=== PATIENT | male | born 1955 | race Caucasian/White ===

== ENCOUNTER 2021-03-04 08:36 | Day surgery (SDC) | payer MEDICARE, SELFPAY ==
--- NOTE | 2021-02-27 13:50 | HO.ANESPROP2 ---
Documented by User: Wendy Llamas 02/27/21 13:51 HPI - Anesthesia Eval Consult details Narrative: 65yo M for Colonoscopy PMFSH Active Problems Active Problems: All Active Problems (Updated 11/13/20 @ 08:36 by Rj Scales MD) Hypertension (Acute) Past Medical History Medical History Hypertension Family History Family History Father No problems noted. Mother No problems noted. Brother In good health Sister In good health Son In good health Daughter In good health Surgical History Surgical History H/O rectal polypectomy History of hemorrhoidectomy Social History Social History Advance Directives: No Advance Directives Information Provided: Yes Meds Allergies Allergy/AdvReac Type Severity Reaction Status Date / Time No Known Allergies Allergy Verified 11/05/20 07:00 [No Known Allergies*] Home Medications Medication Instructions Recorded Confirmed Last Taken Type bupropion HCl 200 mg tablet,12 hr PO 11/13/20 11/13/20 Unknown History sustained-release multivitamin 1 tab PO DAILY 11/13/20 11/13/20 Unknown History tamsulosin 0.4 mg capsule 0.4 mg PO DAILY 11/13/20 11/13/20 Unknown History Exam Exam Date and Time: February 27, 2021 1350 Assessment and Plan Assessment Anesthesia Assessment: Chart Reviewed Documented by User: Pushpa Nieto 03/04/21 08:52 PMFSH Past Medical History Medical History Hypertension Family History Family History Father No problems noted. Mother No problems noted. Brother In good health Sister In good health Son In good health Daughter In good health Surgical History Surgical History H/O rectal polypectomy History of hemorrhoidectomy Social History Social History Advance Directives: No Advance Directives Information Provided: Yes Meds Allergies Allergy/AdvReac Type Severity Reaction Status Date / Time No Known Allergies Allergy Verified 11/05/20 07:00 [No Known Allergies*] Home Medications Medication Instructions Recorded Confirmed Last Taken Type bupropion HCl 200 mg tablet,12 hr PO 11/13/20 11/13/20 Unknown History sustained-release multivitamin 1 tab PO DAILY 11/13/20 11/13/20 Unknown History tamsulosin 0.4 mg capsule 0.4 mg PO DAILY 11/13/20 11/13/20 Unknown History Exam Airway Mallampati Class: II TM Dist: >3cm Neck ROM: Full Assessment and Plan Assessment Anesthesia Assessment: Anesthesia Plan Discussed and Chart Reviewed Final Anesthetic Review NPO: Yes ASA Class: II Final Preanesthetic Review: No Changes in Pt Med Stat, Meds/Allgs Chart Reviewed, Consent Obtained/Reviewed and Anes Risks/Benef Reviewed Patient Risk: Low Procedure Risk: Low Assessment/Block/Sedation in SS: Assess/Block/Sedation-SS Anesthetic Plan Anesthetic Plan: MAC: Disposition: Standard PACU
[2021-03-04 08:48] VITALS: PULSE 82; RESP 18; TEMP 36.6; O2SAT 98; BMI 30.8
[2021-03-04] MEDS: Lactated Ringers 1,000 ML 100 ML IVCONT (09:10)
--- NOTE | 2021-03-04 09:13 | MHC.SHP ---
Pre-Procedural Eval Section A The patient is an INPATIENT: No Changes since office visit: No Cold of Flu in the past 2 weeks, No New Medical Problems, No Changes in Medication and No Patient answered all questions The History & Physical has been completed within 30 days and I have reviewed it.: Yes Section B Chief Complaint: screening Allergies: Allergies Allergy/AdvReac Type Severity Reaction Status Date / Time No Known Allergies Allergy Verified 11/05/20 07:00 [No Known Allergies*] Plan I have reviewed the history and physical and performed a pertinent physical examination on my patient. No changes have occurred unless specified.
[2021-03-04 09:41] VITALS: BP 119/70; PULSE 62; RESP 16; TEMP 36.2; O2SAT 96
--- NOTE | 2021-03-04 09:42 | PM.OP ---
Brief Operative Note Date of Service: 03/04/21 Pre-op diagnosis: screening Post-op diagnosis: same Procedure: colonoscopy Surgeon: Adeel Grant Estimated blood loss (mL): 0 Pathology: none sent Condition: stable Disposition: PACU
[2021-03-04 09:56] VITALS: BP 149/79; PULSE 61; RESP 17; TEMP 36.2; O2SAT 96
--- NOTE | 2021-03-04 10:22 | OP_ITS ---
SURGEON: Adeel Grant MD INDICATIONS: Colon cancer screening and prior history of adenomatous colon polyps. PREOPERATIVE DIAGNOSIS: POSTOPERATIVE DIAGNOSIS: PROCEDURE PERFORMED: Colonoscopy to the terminal ileum. ESTIMATED BLOOD LOSS: COMPLICATIONS: ANESTHESIA: Medications, monitored anesthesia care. ASSISTANTS: SPECIMENS: DESCRIPTION OF PROCEDURE: History and physical performed. The risks and benefits of the procedure were explained to the patient. Informed consent was obtained. The patient was placed in the left lateral decubitus position. A digital rectal exam was performed and was found to be normal. The Olympus pediatric video colonoscope was introduced into the rectum and advanced to the cecum without difficulty. The cecum was identified by transillumination, palpation, and identification of ileocecal valve. Examination was performed. The scope was removed. He tolerated the procedure well and was transferred to the recovery area in stable condition. FINDINGS: The terminal ileum was normal. Visualized colonic mucosa was normal. The quality of the prep was good. No polyps identified. Retroflexed examination showed small internal hemorrhoids. There was scattered diverticulosis. IMPRESSION: Negative screening colonoscopy. RECOMMENDATIONS: 1. Follow up as needed. 2. Repeat colonoscopy should be considered in 5 to 10 years because of prior history of polyps. MD INNA Vargas/BAN / [id number]
== END 2021-03-04 10:10 | disposition home or self-care (01) ==
PROVIDERS: PCP Internal Medicine; Visit Provider Internal Medicine Gastroenterology
PROC: 0DJD8ZZ Inspection of Lower Intestinal Tract, Via Natural or Artificial Opening Endoscopic (ICD-10-PCS; CPT 45378; principal; 2021-03-04 09:30)
DX: Z12.11 Encounter for screening for malignant neoplasm of colon (principal); Z86.010 Personal history of colon polyps; K57.30 Diverticulosis of large intestine without perforation or abscess without bleeding; K64.8 Other hemorrhoids; K21.9 Gastro-esophageal reflux disease without esophagitis; I10 Essential (primary) hypertension; Z79.84 Long term (current) use of oral hypoglycemic drugs
CPT/HCPCS: G0105

== ENCOUNTER 2021-04-30 09:44 | Outpatient (REF) | payer MEDICARE, SELFPAY ==
[2021-04-30 11:23] LABS: Alanine Aminotransferase 18 U/L (0-40); Albumin Level 4.4 g/dL (3.5-5.0); Alkaline Phosphatase 60 U/L (39-117); Anion Gap 12 (12-20); Aspartate Amino Transferase 16 U/L (5-37); Bilirubin Total 0.7 mg/dL (0.0-1.0); Blood Urea Nitrogen 19 mg/dL (9-16); Calcium 9.7 mg/dL (8.4-10.2); Carbon Dioxide 26 mmol/L (22-29); Chloride 105 mmol/L (96-108); Cholesterol 216 mg/dL; Estimated Glomerular Filt Rate > 60; Glucose Fasting 97 mg/dL (60-99); HDL Cholesterol 52 mg/dL; LDL Cholesterol Calculated 141 mg/dl; Potassium 4.9 mmol/L (3.3-5.1); Sodium 138 mmol/L (135-145); Total Protein 7.3 g/dL (6.5-8.0); Triglycerides 116 mg/dL
[2021-04-30 11:44] LABS: Prostate Specific Antigen 1.69 ng/mL (<0.05-4.0)
== END 2021-04-30 09:45 | disposition home or self-care (01) ==
LOC: HO.LAB 09:44
PROVIDERS: PCP Internal Medicine; Visit Provider Nurse Practitioner Family
DX: Z13.220 Encounter for screening for lipoid disorders (principal); Z13.1 Encounter for screening for diabetes mellitus; Z12.5 Encounter for screening for malignant neoplasm of prostate
CPT/HCPCS: 36415; 80053; 80061; 84153

== ENCOUNTER 2021-12-05 09:37 | Outpatient (REF) | payer MEDICARE, SELFPAY ==
--- NOTE | ~2021-12-05 | US_ITS ---
EXAMINATION: US SCROTUM CLINICAL INFORMATION: Scrotal pain. COMPARISON: None TECHNIQUE: A sonogram of the scrotum was performed assessing mancia-scale appearance and color Doppler flow. Spectral Doppler analysis of the arterial and venous flow were performed in the testes bilaterally. FINDINGS: RIGHT: Right testicle measures 4.8 x 1.6 x 3.3 cm, volume 13.0 mL. No focal testicular parenchymal lesions are visualized. Spectral Doppler analysis of the arterial and venous flow is normal in the right testis. Right epididymal head is normal in size. No right hydrocele is seen. There is a small right varicocele present. Right epididymal Doppler flow is normal. LEFT: Left testicle measures 4.2 x 1.9 x 2.9 cm, volume 12.1 mL. No focal testicular parenchymal lesions are visualized. Spectral Doppler analysis of the arterial and venous flow is normal in the left testis. Left epididymal head is normal in size. A small left epididymal head cyst is noted measuring 0.50 x 0.45 x 0.38 cm. There is a small left varicocele present. No left hydrocele is seen. Left epididymal Doppler flow is normal. US/US scrotum IMPRESSION: Bilateral small varicoceles. Small left epididymal head cyst. Normal bilateral ultrasound of the testes with normal Doppler exam.
== END 2021-12-05 09:38 | disposition home or self-care (01) ==
LOC: HO.HMGCX 09:37
PROVIDERS: PCP Internal Medicine; Visit Provider Internal Medicine
DX: N50.82 Scrotal pain (principal)
CPT/HCPCS: 76870

== ENCOUNTER 2022-05-04 09:08 | Outpatient (REF) | payer MEDICARE, SELFPAY ==
[2022-05-04 09:18] LABS: MANUAL DIFF FLAG NO
[2022-05-04 09:29] LABS: Basophils Percent Auto 0.6 % (0-2); Eosinophils Absolute Auto 0.2 X10*3/uL (0.0-0.4); Eosinophils Percent Auto 3.2 % (0-4); Hemoglobin 14.5 g/dl (14.0-18.0); Imm Gran Abs Auto 0.02 X10*3/uL (0.00-0.03); Imm Gran Pct Auto 0.3 % (0.0-0.4); Lymphocytes Absolute Auto 1.8 X10*3/uL (1.2-4.9); Lymphocytes Percent Auto 29.1 % (20-40); Mean Corpuscular HGB Conc 33.7 g/dl (31.0-36.0); Mean Corpuscular Hemoglobin 28.7 pg (27.0-33.0); Mean Corpuscular Volume 85.1 fL (80.0-98.0); Mean Platelet Volume 9.8 fL (9.4-12.4); Monocytes Absolute Auto 0.7 X10*3/uL (0.1-1.2); Monocytes Percent Auto 11.3 % (2-11); Neutrophils Absolute Auto 3.5 x10*3/uL (2.0-8.3); Neutrophils Percent Auto 55.5 % (45-73); Platelet Count 238 X10*3/uL (160-400); Red Blood Count 5.05 X10*6/uL (4.60-5.80); White Blood Count 6.3 X10*3/uL (4.8-10.8)
[2022-05-04 10:09] LABS: Alanine Aminotransferase 25 U/L (0-40); Albumin Level 4.4 g/dL (3.5-5.0); Alkaline Phosphatase 58 U/L (39-117); Anion Gap 11 (12-20); Aspartate Amino Transferase 20 U/L (5-37); Bilirubin Total 0.7 mg/dL (0.0-1.0); Blood Urea Nitrogen 13 mg/dL (9-16); Calcium 9.1 mg/dL (8.4-10.2); Carbon Dioxide 27 mmol/L (22-29); Chloride 104 mmol/L (96-108); Cholesterol 221 mg/dL; Estimated Glomerular Filt Rate 57; Glucose Fasting 114 mg/dL (60-99); HDL Cholesterol 50 mg/dL; LDL Cholesterol Calculated 152 mg/dl; Potassium 4.9 mmol/L (3.3-5.1); Sodium 137 mmol/L (135-145); Total Protein 7.5 g/dL (6.5-8.0); Triglycerides 99 mg/dL
[2022-05-04 10:13] LABS: Thyroid Stimulating Hormone 4.26 uIU/mL (0.32-4.0)
== END 2022-05-04 09:09 | disposition home or self-care (01) ==
LOC: HO.LAB 09:08
PROVIDERS: PCP Internal Medicine; Visit Provider Internal Medicine
DX: Z13.0 Encounter for screening for diseases of the blood and blood-forming organs and certain disorders involving the immune mechanism (principal); I10 Essential (primary) hypertension; E78.5 Hyperlipidemia, unspecified; E03.9 Hypothyroidism, unspecified
CPT/HCPCS: 36415; 80053; 80061; 84443; 85025

== ENCOUNTER 2023-02-05 07:18 | Outpatient (REF) | payer MEDICARE, SELFPAY ==
[2023-02-05 07:38] LABS: MANUAL DIFF FLAG NO
[2023-02-05 07:57] LABS: Basophils Absolute Auto 0.1 X10*3/uL (0.0-0.2); Eosinophils Absolute Auto 0.3 X10*3/uL (0.0-0.4); Eosinophils Percent Auto 2.8 % (0-4); Hematocrit 44.1 % (42.0-52.0); Hemoglobin 14.7 g/dl (14.0-18.0); Imm Gran Abs Auto 0.04 X10*3/uL (0.00-0.03); Imm Gran Pct Auto 0.4 % (0.0-0.4); Lymphocytes Absolute Auto 2.1 X10*3/uL (1.2-4.9); Lymphocytes Percent Auto 22.8 % (20-40); Mean Corpuscular HGB Conc 33.3 g/dl (31.0-36.0); Mean Corpuscular Hemoglobin 28.5 pg (27.0-33.0); Mean Corpuscular Volume 85.5 fL (80.0-98.0); Monocytes Absolute Auto 0.9 X10*3/uL (0.1-1.2); Monocytes Percent Auto 9.5 % (2-11); Neutrophils Absolute Auto 5.9 x10*3/uL (2.0-8.3); Neutrophils Percent Auto 63.5 % (45-73); Platelet Count 273 X10*3/uL (160-400); Red Blood Count 5.16 X10*6/uL (4.60-5.80); White Blood Count 9.3 X10*3/uL (4.8-10.8)
[2023-02-05 08:31] LABS: Alanine Aminotransferase 23 U/L (0-40); Albumin Level 4.3 g/dL (3.5-5.0); Alkaline Phosphatase 69 U/L (39-117); Anion Gap 15 (12-20); Aspartate Amino Transferase 17 U/L (5-37); Bilirubin Total 0.4 mg/dL (0.0-1.0); Blood Urea Nitrogen 17 mg/dL (9-16); Calcium 9.5 mg/dL (8.4-10.2); Carbon Dioxide 25 mmol/L (22-29); Chloride 105 mmol/L (96-108); Cholesterol 220 mg/dL; Estimated Glomerular Filt Rate > 60; Glucose Fasting 111 mg/dL (60-99); HDL Cholesterol 46 mg/dL; LDL Cholesterol Calculated 152 mg/dl; Potassium 5.1 mmol/L (3.3-5.1); Sodium 140 mmol/L (135-145); Total Protein 7.3 g/dL (6.5-8.0); Triglycerides 114 mg/dL
[2023-02-05 08:48] LABS: Thyroid Stimulating Hormone 6.04 uIU/mL (0.32-4.0)
== END 2023-02-05 07:19 | disposition home or self-care (01) ==
LOC: HO.LAB 07:18
PROVIDERS: PCP Internal Medicine; Visit Provider Internal Medicine
DX: Z00.00 Encounter for general adult medical examination without abnormal findings (principal); Z12.5 Encounter for screening for malignant neoplasm of prostate; E03.9 Hypothyroidism, unspecified; D64.9 Anemia, unspecified; N28.9 Disorder of kidney and ureter, unspecified; E78.5 Hyperlipidemia, unspecified
CPT/HCPCS: 36415; 80053; 80061; 84153; 84443; 85025

== ENCOUNTER 2023-03-12 07:25 | Outpatient (REF) | payer MEDICARE, SELFPAY ==
[2023-03-12 07:38] LABS: MANUAL DIFF FLAG NO
[2023-03-12 07:54] LABS: Basophils Absolute Auto 0.1 X10*3/uL (0.0-0.2); Basophils Percent Auto 0.9 % (0-2); Eosinophils Absolute Auto 0.2 X10*3/uL (0.0-0.4); Eosinophils Percent Auto 2.9 % (0-4); Hematocrit 44.1 % (42.0-52.0); Hemoglobin 14.9 g/dl (14.0-18.0); Imm Gran Abs Auto 0.02 X10*3/uL (0.00-0.03); Imm Gran Pct Auto 0.3 % (0.0-0.4); Lymphocytes Absolute Auto 1.9 X10*3/uL (1.2-4.9); Lymphocytes Percent Auto 29.6 % (20-40); Mean Corpuscular HGB Conc 33.8 g/dl (31.0-36.0); Mean Corpuscular Hemoglobin 28.8 pg (27.0-33.0); Mean Corpuscular Volume 85.1 fL (80.0-98.0); Mean Platelet Volume 9.6 fL (9.4-12.4); Monocytes Absolute Auto 0.8 X10*3/uL (0.1-1.2); Monocytes Percent Auto 12.9 % (2-11); Neutrophils Absolute Auto 3.5 x10*3/uL (2.0-8.3); Neutrophils Percent Auto 53.4 % (45-73); Platelet Count 238 X10*3/uL (160-400); Red Blood Count 5.18 X10*6/uL (4.60-5.80); White Blood Count 6.5 X10*3/uL (4.8-10.8)
[2023-03-12 08:30] LABS: Alanine Aminotransferase 25 U/L (0-40); Albumin Level 4.4 g/dL (3.5-5.0); Alkaline Phosphatase 61 U/L (39-117); Anion Gap 13 (12-20); Aspartate Amino Transferase 19 U/L (5-37); Bilirubin Total 0.7 mg/dL (0.0-1.0); Blood Urea Nitrogen 15 mg/dL (9-16); Calcium 9.5 mg/dL (8.4-10.2); Carbon Dioxide 26 mmol/L (22-29); Chloride 103 mmol/L (96-108); Cholesterol 230 mg/dL; Estimated Glomerular Filt Rate 56; Glucose Fasting 113 mg/dL (60-99); HDL Cholesterol 47 mg/dL; LDL Cholesterol Calculated 155 mg/dl; Potassium 5.2 mmol/L (3.3-5.1); Sodium 137 mmol/L (135-145); Total Protein 7.2 g/dL (6.5-8.0); Triglycerides 140 mg/dL
[2023-03-12 09:09] LABS: Thyroid Stimulating Hormone 1.02 uIU/mL (0.32-4.0)
== END 2023-03-12 07:26 | disposition home or self-care (01) ==
LOC: HO.LAB 07:25
PROVIDERS: PCP Internal Medicine; Visit Provider Internal Medicine
DX: E03.9 Hypothyroidism, unspecified (principal); I10 Essential (primary) hypertension; E78.5 Hyperlipidemia, unspecified; Z13.0 Encounter for screening for diseases of the blood and blood-forming organs and certain disorders involving the immune mechanism
CPT/HCPCS: 36415; 80053; 80061; 84443; 85025

== ENCOUNTER 2023-06-01 06:14 | Outpatient (REF) | payer MEDICARE, SELFPAY ==
[2023-06-01 06:38] LABS: MANUAL DIFF FLAG NO
[2023-06-01 07:20] LABS: Basophils Absolute Auto 0.1 X10*3/uL (0.0-0.2); Basophils Percent Auto 0.9 % (0-2); Eosinophils Absolute Auto 0.3 X10*3/uL (0.0-0.4); Eosinophils Percent Auto 3.3 % (0-4); Hematocrit 44.9 % (42.0-52.0); Hemoglobin 14.6 g/dl (14.0-18.0); Imm Gran Abs Auto 0.02 X10*3/uL (0.00-0.03); Imm Gran Pct Auto 0.3 % (0.0-0.4); Lymphocytes Absolute Auto 2.4 X10*3/uL (1.2-4.9); Lymphocytes Percent Auto 30.3 % (20-40); Mean Corpuscular HGB Conc 32.5 g/dl (31.0-36.0); Mean Corpuscular Hemoglobin 28.3 pg (27.0-33.0); Mean Platelet Volume 10.1 fL (9.4-12.4); Monocytes Absolute Auto 0.8 X10*3/uL (0.1-1.2); Monocytes Percent Auto 9.9 % (2-11); Neutrophils Absolute Auto 4.3 x10*3/uL (2.0-8.3); Neutrophils Percent Auto 55.3 % (45-73); Platelet Count 234 X10*3/uL (160-400); Red Blood Count 5.16 X10*6/uL (4.60-5.80); Red Cell Distribution Width 12.7 % (11.0-16.0); White Blood Count 7.9 X10*3/uL (4.8-10.8)
[2023-06-01 07:49] LABS: Alanine Aminotransferase 19 U/L (0-40); Albumin Level 4.1 g/dL (3.5-5.0); Alkaline Phosphatase 56 U/L (39-117); Anion Gap 13 (12-20); Aspartate Amino Transferase 15 U/L (5-37); Bilirubin Total 0.6 mg/dL (0.0-1.0); Blood Urea Nitrogen 19 mg/dL (9-16); Calcium 9.1 mg/dL (8.4-10.2); Carbon Dioxide 26 mmol/L (22-29); Chloride 104 mmol/L (96-108); Cholesterol 198 mg/dL; Estimated Glomerular Filt Rate 58; Glucose Fasting 107 mg/dL (60-99); HDL Cholesterol 46 mg/dL; LDL Cholesterol Calculated 126 mg/dl; Potassium 4.6 mmol/L (3.3-5.1); Sodium 138 mmol/L (135-145); Total Protein 7.3 g/dL (6.5-8.0); Triglycerides 134 mg/dL
[2023-06-01 08:04] LABS: Prostate Specific Antigen Scr 1.49 ng/mL (<0.05-4.0)
[2023-06-01 08:07] LABS: Thyroid Stimulating Hormone 0.49 uIU/mL (0.32-4.0)
== END 2023-06-01 06:15 | disposition home or self-care (01) ==
LOC: HO.LAB 06:14
PROVIDERS: PCP Internal Medicine; Visit Provider Internal Medicine
DX: Z00.00 Encounter for general adult medical examination without abnormal findings (principal); Z12.5 Encounter for screening for malignant neoplasm of prostate; N28.9 Disorder of kidney and ureter, unspecified; E03.9 Hypothyroidism, unspecified; D64.9 Anemia, unspecified; E78.5 Hyperlipidemia, unspecified
CPT/HCPCS: 36415; 80053; 80061; 84153; 84443; 85025

== ENCOUNTER 2023-08-10 10:06 | Outpatient (AMB) | payer MEDICARE, SELFPAY ==
[2023-08-10 10:17] VITALS: BP 138/74; PULSE 87; O2SAT 97; BMI 30.3
--- NOTE | 2023-08-10 10:17 | MHC.PC.OV ---
Vital Signs 08/10/23 10:17 Height 5 ft 10 in Weight 211 lb BMI 30.3 BP 138/74 Blood Pressure Location Lt brachial Position Sitting Pulse 87 Pulse Source Pulse Oximeter Pulse Oximetry (%) 97 Oxygen Delivery Method Room Air Intake Visit Reasons: 3 month f/u Medical Services Assistant: Not Required per policy Accompanied by: Self / Same As Patient Allergies No Known Allergies [No Known Allergies*] Allergy (Verified 08/10/23 10:17) Medication List - Last Reconciled 08/10/23 by Rj Scales MD bupropion HCl 150 mg PO QAM clotrimazole-betamethasone 1-0.05 % 1 appl topical BID cyclobenzaprine 10 mg PO TID PRN levothyroxine 100 mcg PO DAILY lisinopril 20 mg PO DAILY multivitamin 1 tab PO DAILY omeprazole 20 mg PO DAILY tamsulosin 0.4 mg PO DAILY Tobacco use date assessed: 02/03/23 Fall risk assessment: No Falls in past year Last assessed Fall Risk: 08/10/23 Dental Screening Dental Screen Date: 08/10/23 Did you have a dental visit in the last 12 months?: Yes Did you have a dental problem in the last 6 months where you did not have access to dental care?: No Was dental information given to patient?: Patient has dentist HPI 3 month f/u HPI Details HTN and hypothyroidism; doing well; [facility] Medical History Obesity Screening for prostate cancer Screening for hyperlipidemia Screening for diabetes mellitus Hypertension Surgical History History of colonoscopy H/O rectal polypectomy History of hemorrhoidectomy Family History Father No problems noted. Mother No problems noted. Brother In good health Sister In good health Son In good health Daughter In good health Social History Housing: House Alcohol intake: never Patient Tobacco Use Status: Never used Tobacco e-Cigarette/Vaping Use: Never Used Second Hand Smoke Exposure: No service: No Current occupational status: retired Cognitive needs: No Hearing needs: No Vision needs: Yes (glasses) Questionnaire PHQ-9 Over the last 2 weeks, how often have you been bothered by any of the following problems? 1. Little interest or pleasure in doing things: not at all 2. Feeling down, depressed, or hopeless: not at all 3. Trouble falling or staying asleep, or sleeping too much: not at all 4. Feeling tired or having little energy: not at all 5. Poor appetite or overeating: not at all 6. Feeling bad about yourself - or that you are a failure or have let yourself or your family down: not at all 7. Trouble concentrating on things, such as reading the newspaper or watching television: not at all 8. Moving or speaking so slowly that other people could have noticed. Or the opposite - being so fidgety or restless that you have been moving around a lot more than usual: not at all 9. Thoughts that you would be better off or of hurting yourself in some way: not at all Total score: 0 Depression Screening Interpretation: Negative 96699 - PHQ-9 Billing: Yes Source: Developed by Drs. Meliton Choudhary, Merari Cancino, Bob Hurley and colleagues, with an educational ming from [employer]. Thrive Questionnaire Date Thrive assessed: 02/03/23 AUDIT C Alcohol Use Questionnaire (AUDIT-C) 1. How often do you have a drink containing alcohol?: Never Total Score: 0 NATALI-7 AMB Questionnaire NATALI-7 Date NATALI - 7 assessed: 02/03/23 Source: Developed by Drs. Meliton Choudhary, Bob Patel and colleagues, with an educational ming from [employer]. Review of Systems Const Denies chills, Denies headache(s) and Denies weight loss ENT Denies headache(s) Card Denies chest pain, Denies syncope, Denies irregular heart rhythm and Denies dyspnea Resp Reports chest congestion, Reports cough and Denies dyspnea GI Denies abdominal pain, Denies change in stool character, Denies nausea and Denies vomiting Musc Denies deformity and Denies joint swelling Neuro Denies syncope and Denies headache(s) Physical exam (Primary Care) Vital Signs: Last Vital Signs Pulse 87 08/10/23 10:17 BP 138/74 08/10/23 10:17 Pulse Ox 97 08/10/23 10:17 Oxygen Delivery Method Room Air 08/10/23 10:17 BMI result Body Mass Index 30.3 Tobacco/Smoking Status: Tobacco use Status Tobacco use date assessed 02/03/23 08/10/23 10:21 Patient Tobacco Use Status Never used Tobacco 08/10/23 10:21 e-Cigarette/Vaping Use Never Used 08/10/23 10:21 PHQ-9: PHQ-9 Score PHQ-9: Total score 0 08/10/23 10:21 Depression Screening Interpretation: Negative Thrive Assessment: Date of Thrive Assessment Date Thrive assessed 02/03/23 08/10/23 10:21 Const General: cooperative, comfortable, no acute distress and alert Neck Neck: Yes no lymphadenopathy Thyroid: Thyroid normal Resp Effort & Inspection: normal respiratory effort Auscultation: clear to auscultation bilaterally Percussion: percussion normal Cardio Jugular venous distension: no JVD Palpation: normal PMI Rate: regular rate Rhythm: regular rhythm Heart sounds: S1 normal heart sound present and S2 normal heart sound present GI Inspection: Yes normal to inspection Palpation (GI): No hepatosplenomegaly present Skin General skin exam: no rashes or lesions noted Extrem General: Yes no clubbing, cyanosis or edema Assessment and Plan Assessment & Plan (1) Hypertension: Code(s): I10 - Essential (primary) hypertension Qualifiers: Hypertension type: unspecified Qualified Code(s): I10 - Essential (primary) hypertension Plan: stable; same rx (2) Hypothyroidism: Code(s): E03.9 - Hypothyroidism, unspecified Plan: same rx; do labs (3) Cough: Code(s): R05.9 - Cough, unspecified Plan: sent rx Orders: Orders Thyroid Stimulating Hormone Today E03.9 - Hypothyroidism, unspecified Medications: New amoxicillin 250 mg PO Q8H 30 caps 0RF Coding Level of Care Code Est Pt Level 4 (68039) Diagnoses Hypertension, unspecified type I10 Hypertension type: unspecified Hypothyroidism E03.9 Cough R05.9
== END 2023-08-10 10:33 | disposition home or self-care (01) ==
PROVIDERS: PCP Internal Medicine; Visit Provider Internal Medicine
DX: I10 Essential (primary) hypertension (principal); E03.9 Hypothyroidism, unspecified; R05.9 Cough, unspecified
CPT/HCPCS: 99214

== ENCOUNTER 2023-09-06 13:51 | Outpatient (AMB) | payer MEDICARE, SELFPAY ==
[2023-09-06 13:54] VITALS: BP 128/68; PULSE 81; O2SAT 98; BMI 29.8
--- NOTE | 2023-09-06 13:54 | MHC.PC.OV ---
Vital Signs 09/06/23 13:54 Height 5 ft 10 in Weight 208 lb BMI 29.8 BP 128/68 Blood Pressure Location Lt brachial Position Sitting Pulse 81 Pulse Source Pulse Oximeter Pulse Oximetry (%) 98 Oxygen Delivery Method Room Air Intake Visit Reasons: Pneumonia Follow Up Director Commercial Sales: Present Allergies No Known Allergies [No Known Allergies*] Allergy (Verified 09/06/23 13:55) Medication List - Last Reconciled 09/06/23 by Rj Scales MD amoxicillin 250 mg PO Q8H bupropion HCl 150 mg PO QAM clotrimazole-betamethasone 1-0.05 % 1 appl topical BID cyclobenzaprine 10 mg PO TID PRN levothyroxine 100 mcg PO DAILY lisinopril 20 mg PO DAILY multivitamin 1 tab PO DAILY omeprazole 20 mg PO DAILY tamsulosin 0.4 mg PO DAILY Tobacco use date assessed: 02/03/23 Fall risk assessment: No Falls in past year Last assessed Fall Risk: 09/06/23 Dental Screening Dental Screen Date: 09/06/23 Did you have a dental visit in the last 12 months?: Yes Did you have a dental problem in the last 6 months where you did not have access to dental care?: No Was dental information given to patient?: Patient has dentist HPI Pneumonia Follow Up HPI Details had lll pneumonia diagnosed in urgent care; feels better and repeat cxr needed [facility] Medical History Obesity Screening for prostate cancer Screening for hyperlipidemia Screening for diabetes mellitus Hypertension Surgical History History of colonoscopy H/O rectal polypectomy History of hemorrhoidectomy Family History Father No problems noted. Mother No problems noted. Brother In good health Sister In good health Son In good health Daughter In good health Social History Housing: House Alcohol intake: never Patient Tobacco Use Status: Never used Tobacco e-Cigarette/Vaping Use: Never Used Second Hand Smoke Exposure: No service: No Current occupational status: retired Cognitive needs: No Hearing needs: No Vision needs: Yes (glasses) Questionnaire PHQ-9 Over the last 2 weeks, how often have you been bothered by any of the following problems? 1. Little interest or pleasure in doing things: not at all 2. Feeling down, depressed, or hopeless: not at all 3. Trouble falling or staying asleep, or sleeping too much: not at all 4. Feeling tired or having little energy: not at all 5. Poor appetite or overeating: not at all 6. Feeling bad about yourself - or that you are a failure or have let yourself or your family down: not at all 7. Trouble concentrating on things, such as reading the newspaper or watching television: not at all 8. Moving or speaking so slowly that other people could have noticed. Or the opposite - being so fidgety or restless that you have been moving around a lot more than usual: not at all 9. Thoughts that you would be better off or of hurting yourself in some way: not at all Total score: 0 Depression Screening Interpretation: Negative Depression Screening Done: Yes 36036 - PHQ-9 Billing: Yes Source: Developed by Drs. Meliton Choudhary, Merari Cancino, Bob Hurley and colleagues, with an educational ming from [employer]. Thrive Questionnaire Date Thrive assessed: 02/03/23 AUDIT C Alcohol Use Questionnaire (AUDIT-C) 1. How often do you have a drink containing alcohol?: Never Total Score: 0 NATALI-7 AMB Questionnaire NATALI-7 Date NATALI - 7 assessed: 02/03/23 Source: Developed by Drs. Meliton Choudhary, Bob Patel and colleagues, with an educational ming from [employer]. Review of Systems Const Denies chills, Denies headache(s) and Denies weight loss ENT Denies headache(s) Card Denies chest pain, Denies syncope, Denies irregular heart rhythm and Denies dyspnea Resp Denies chest congestion, Denies cough and Denies dyspnea GI Denies abdominal pain, Denies change in stool character, Denies nausea and Denies vomiting Musc Denies deformity and Denies joint swelling Neuro Denies syncope and Denies headache(s) Physical exam (Primary Care) Vital Signs: Last Vital Signs Pulse 81 09/06/23 13:54 BP 128/68 09/06/23 13:54 Pulse Ox 98 09/06/23 13:54 Oxygen Delivery Method Room Air 09/06/23 13:54 BMI result Body Mass Index 29.8 Tobacco/Smoking Status: Tobacco use Status Tobacco use date assessed 02/03/23 09/06/23 13:55 Patient Tobacco Use Status Never used Tobacco 09/06/23 13:55 e-Cigarette/Vaping Use Never Used 09/06/23 13:55 PHQ-9: PHQ-9 Score PHQ-9: Total score 0 09/06/23 13:55 Depression Screening Interpretation: Negative Thrive Assessment: Date of Thrive Assessment Date Thrive assessed 02/03/23 09/06/23 13:55 Const General: cooperative, comfortable, no acute distress and alert Neck Neck: Yes no lymphadenopathy Thyroid: Thyroid normal Resp Effort & Inspection: normal respiratory effort Auscultation: clear to auscultation bilaterally Percussion: percussion normal Cardio Jugular venous distension: no JVD Palpation: normal PMI Rate: regular rate Rhythm: regular rhythm Heart sounds: S1 normal heart sound present and S2 normal heart sound present GI Inspection: Yes normal to inspection Palpation (GI): No hepatosplenomegaly present Skin General skin exam: no rashes or lesions noted Extrem General: Yes no clubbing, cyanosis or edema Assessment and Plan Assessment & Plan (1) Pneumonia: Code(s): J18.9 - Pneumonia, unspecified organism Plan: repeat cxr Orders: Orders XR chest 2V Today J18.9 - Pneumonia, unspecified organism Coding Level of Care Code Est Pt Level 3 (23887) Diagnoses Pneumonia J18.9
== END 2023-09-06 14:10 | disposition home or self-care (01) ==
PROVIDERS: PCP Internal Medicine; Visit Provider Internal Medicine
DX: J18.9 Pneumonia, unspecified organism (principal)
CPT/HCPCS: 99213

== ENCOUNTER 2023-09-06 14:14 | Outpatient (REF) | payer MEDICARE, SELFPAY ==
--- NOTE | ~2023-09-06 | XR_ITS ---
EXAMINATION: XR CHEST CLINICAL INFORMATION: Follow-up from previous study, per patient COMPARISON: 03/07/2015 TECHNIQUE: 2 views of the chest were obtained. FINDINGS: No significant abnormality is noted involving the heart, lungs, mediastinum, bony thorax or soft tissues. XR/XR chest 2V IMPRESSION: Unremarkable examination.
[2023-09-06 15:27] LABS: Thyroid Stimulating Hormone 0.15 uIU/mL (0.32-4.0)
== END 2023-09-06 14:15 | disposition home or self-care (01) ==
LOC: HO.LAB 14:14
PROVIDERS: PCP Internal Medicine; Visit Provider Internal Medicine
DX: J18.9 Pneumonia, unspecified organism (principal); E03.9 Hypothyroidism, unspecified
CPT/HCPCS: 36415; 71046; 84443

== ENCOUNTER 2023-11-09 10:33 | Outpatient (AMB) | payer MEDICARE, SELFPAY ==
[2023-11-09 10:35] VITALS: BP 138/70; PULSE 72; O2SAT 97; BMI 31.1
--- NOTE | 2023-11-09 10:35 | A.OFFPC_ITS ---
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 Allergies No Known Allergies [No Known Allergies*] Allergy (Verified 11/09/23 10:36) Medication List - Last Reconciled 11/09/23 by Rj Scales MD bupropion HCl 150 mg PO QAM clotrimazole-betamethasone 1-0.05 % 1 appl topical BID cyclobenzaprine 10 mg PO TID PRN levothyroxine 100 mcg PO DAILY lisinopril 20 mg PO DAILY multivitamin 1 tab PO DAILY omeprazole 20 mg PO DAILY tamsulosin 0.4 mg PO DAILY Tobacco use date assessed: 11/09/23 HPI 3mth f/u HPI Details HTN on Rx; compliant [facility] Medical History Obesity Screening for prostate cancer Screening for hyperlipidemia Screening for diabetes mellitus Hypertension Surgical History History of colonoscopy H/O rectal polypectomy History of hemorrhoidectomy Family History Father No problems noted. Mother No problems noted. Brother In good health Sister In good health Son In good health Daughter In good health Social History Housing: House Alcohol intake: never Patient Tobacco Use Status: Never used Tobacco e-Cigarette/Vaping Use: Never Used Second Hand Smoke Exposure: No service: No Current occupational status: retired Cognitive needs: No Hearing needs: No Vision needs: Yes (glasses) Questionnaire Thrive Questionnaire Date Thrive assessed: 02/03/23 AUDIT C Alcohol Use Questionnaire (AUDIT-C) 1. How often do you have a drink containing alcohol?: Never Total Score: 0 NATALI-7 AMB Questionnaire NATALI-7 Date NATALI - 7 assessed: 02/03/23 Source: Developed by Drs. Meliton Choudhary, Merari Cancino, Bob Hurley and colleagues, with an educational ming from [employer]. Review of Systems Const Denies chills, Denies headache(s) and Denies weight loss ENT Denies headache(s) Card Denies chest pain, Denies syncope, Denies irregular heart rhythm and Denies dyspnea Resp Denies chest congestion, Denies cough and Denies dyspnea GI Denies abdominal pain, Denies change in stool character, Denies nausea and Denies vomiting Musc Denies deformity and Denies joint swelling Neuro Denies syncope and Denies headache(s) Physical exam (Primary Care) Vital Signs: Last Vital Signs Pulse 72 11/09/23 10:35 BP 138/70 11/09/23 10:35 Pulse Ox 97 11/09/23 10:35 Oxygen Delivery Method Room Air 11/09/23 10:35 BMI result Body Mass Index 31.1 Tobacco/Smoking Status: Tobacco use Status Tobacco use date assessed 11/09/23 11/09/23 10:39 Patient Tobacco Use Status Never used Tobacco 11/09/23 10:39 e-Cigarette/Vaping Use Never Used 11/09/23 10:39 Thrive Assessment: Date of Thrive Assessment Date Thrive assessed 02/03/23 11/09/23 10:39 Const General: cooperative, comfortable, no acute distress and alert Neck Neck: Yes no lymphadenopathy Thyroid: Thyroid normal Resp Effort & Inspection: normal respiratory effort Auscultation: clear to auscultation bilaterally Percussion: percussion normal Cardio Jugular venous distension: no JVD Palpation: normal PMI Rate: regular rate Rhythm: regular rhythm Heart sounds: S1 normal heart sound present and S2 normal heart sound present GI Inspection: Yes normal to inspection Palpation (GI): No hepatosplenomegaly present Skin General skin exam: no rashes or lesions noted Extrem General: Yes no clubbing, cyanosis or edema Assessment and Plan Assessment & Plan (1) Hypertension: Code(s): I10 - Essential (primary) hypertension Qualifiers: Hypertension type: unspecified Qualified Code(s): I10 - Essential (primary) hypertension Plan: stable; same rx Orders: Orders XR chest 2V Today R05.9 - Cough, unspecified Thyroid Stimulating Hormone Today E03.9 - Hypothyroidism, unspecified Coding Level of Care Code Est Pt Level 3 (39687) Diagnoses Hypertension, unspecified type I10 Hypertension type: unspecified
== END 2023-11-09 10:57 | disposition home or self-care (01) ==
PROVIDERS: PCP Internal Medicine; Visit Provider Internal Medicine
DX: I10 Essential (primary) hypertension (principal)
CPT/HCPCS: 99213

== ENCOUNTER 2023-11-09 11:00 | Outpatient (REF) | payer MEDICARE, SELFPAY ==
[2023-11-09 12:51] LABS: Thyroid Stimulating Hormone 0.12 uIU/mL (0.32-4.0)
== END 2023-11-09 11:01 | disposition home or self-care (01) ==
LOC: HO.XRAY 11:00
PROVIDERS: PCP Internal Medicine; Visit Provider Internal Medicine
DX: R05.9 Cough, unspecified (principal); E03.9 Hypothyroidism, unspecified
CPT/HCPCS: 36415; 71046; 84443

== ENCOUNTER 2024-02-09 08:18 | Outpatient (AMB) | payer MEDICARE, SELFPAY ==
[2024-02-09 08:34] VITALS: BP 148/72; PULSE 88; O2SAT 98; BMI 31.3
--- NOTE | 2024-02-09 08:34 | MHC.PC.OV ---
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 Accompanied by: Self / Same As Patient Allergies No Known Allergies [No Known Allergies*] Allergy (Verified 02/09/24 08:35) Tobacco use date assessed: 02/09/24 Fall risk assessment: No Falls in past year Last assessed Fall Risk: 02/09/24 Dental Screening Dental Screen Date: 02/09/24 Did you have a dental visit in the last 12 months?: Yes Did you have a dental problem in the last 6 months where you did not have access to dental care?: No Was dental information given to patient?: Patient has dentist HPI 3mth f/u HPI Details Hypothyroidism HTN and BPH on Rx; doinf well and compliant [facility] Medical History Obesity Screening for prostate cancer Screening for hyperlipidemia Screening for diabetes mellitus Hypertension Surgical History History of colonoscopy H/O rectal polypectomy History of hemorrhoidectomy Family History Father No problems noted. Mother No problems noted. Brother In good health Sister In good health Son In good health Daughter In good health Social History Housing: House Alcohol intake: never Patient Tobacco Use Status: Never used Tobacco e-Cigarette/Vaping Use: Never Used Second Hand Smoke Exposure: No service: No Current occupational status: retired Cognitive needs: No Hearing needs: No Vision needs: Yes (glasses) Questionnaire PHQ-9 Over the last 2 weeks, how often have you been bothered by any of the following problems? 1. Little interest or pleasure in doing things: several days 2. Feeling down, depressed, or hopeless: several days 3. Trouble falling or staying asleep, or sleeping too much: not at all 4. Feeling tired or having little energy: not at all 5. Poor appetite or overeating: not at all 6. Feeling bad about yourself - or that you are a failure or have let yourself or your family down: not at all 7. Trouble concentrating on things, such as reading the newspaper or watching television: not at all 8. Moving or speaking so slowly that other people could have noticed. Or the opposite - being so fidgety or restless that you have been moving around a lot more than usual: not at all 9. Thoughts that you would be better off or of hurting yourself in some way: not at all Total score: 2 Depression Screening Interpretation: Negative Depression Screening Done: Yes 21531 - PHQ-9 Billing: Yes Source: Developed by Drs. Meliton Choudhary, Merari Cancino, Bob Hurley and colleagues, with an educational ming from [employer]. Thrive Questionnaire Date Thrive assessed: 02/09/24 I am a: Patient What is your living situation today?: I have a steady place to live Within the past 12 months, did the food you bought not last and you didn't have the money to get more?: Never true Within the past 12 months, did you worry whether your food would run out before you got money to buy more?: Never true Do you have trouble paying for medicines?: No Do you have trouble getting transportation to medical appointments?: No Do you have trouble paying your heating and electricity bill?: No Do you have trouble taking care of your child, family member or friend?: No Do you have trouble with day-to-day activities such as bathing, preparing meals, shopping, managing finances, etc.?: No Are you currently unemployed and looking for a job?: No Are you interested in more education?: No Please select the resources that you would like help with: None THRIVE Score: 0 AUDIT C Alcohol Use Questionnaire (AUDIT-C) 1. How often do you have a drink containing alcohol?: Never Total Score: 0 NATALI-7 AMB Questionnaire NATALI-7 Date NATALI - 7 assessed: 02/09/24 Feeling nervous, anxious, or on edge: 0 = Not at all Not being able to stop or control worryin = Not at all Worrying too much about different things: 0 = Not at all Trouble relaxin = Not at all Being so restless that it is hard to sit still: 0 = Not at all Becoming easily annoyed or irritable: 0 = Not at all Feeling afraid as if something awful might happen: 0 = Not at all Total NATALI-7 score (0-4 normal; 5-9 mild; 10-14 moderate; 15-21 severe): 0 Source: Developed by Drs. Meliton Choudhary, Merari Cancino, Bob Hurley and colleagues, with an educational ming from [employer]. NATALI-7 Assessment Billing NATALI-7 Assessment Tool: NATALI-7 Assessment 24845 Review of Systems Const Denies chills, Denies headache(s) and Denies weight loss ENT Denies headache(s) Card Denies chest pain, Denies syncope, Denies irregular heart rhythm and Denies dyspnea Resp Denies chest congestion, Denies cough and Denies dyspnea GI Denies abdominal pain, Denies change in stool character, Denies nausea and Denies vomiting Musc Denies deformity and Denies joint swelling Neuro Denies syncope and Denies headache(s) Physical exam (Primary Care) Vital Signs: Last Vital Signs Pulse 88 02/09/24 08:34 BP 148/72 H 02/09/24 08:34 Pulse Ox 98 02/09/24 08:34 Oxygen Delivery Method Room Air 02/09/24 08:34 BMI result Body Mass Index 31.3 Tobacco/Smoking Status: Tobacco use Status Tobacco use date assessed 02/09/24 02/09/24 08:35 Patient Tobacco Use Status Never used Tobacco 02/09/24 08:35 e-Cigarette/Vaping Use Never Used 02/09/24 08:35 PHQ-9: PHQ-9 Score PHQ-9: Total score 2 02/09/24 08:39 Depression Screening Interpretation: Negative Thrive Assessment: Date of Thrive Assessment Date Thrive assessed 02/09/24 02/09/24 08:35 Const General: cooperative, comfortable, no acute distress and alert Neck Neck: Yes no lymphadenopathy Thyroid: Thyroid normal Resp Effort & Inspection: normal respiratory effort Auscultation: clear to auscultation bilaterally Percussion: percussion normal Cardio Jugular venous distension: no JVD Palpation: normal PMI Rate: regular rate Rhythm: regular rhythm Heart sounds: S1 normal heart sound present and S2 normal heart sound present GI Inspection: Yes normal to inspection Palpation (GI): No hepatosplenomegaly present Skin General skin exam: no rashes or lesions noted Extrem General: Yes no clubbing, cyanosis or edema Assessment and Plan Assessment & Plan (1) Hypothyroidism: Code(s): E03.9 - Hypothyroidism, unspecified Plan: stable; same rx; do lans (2) BPH (benign prostatic hyperplasia): Code(s): N40.0 - Benign prostatic hyperplasia without lower urinary tract symptoms Plan: sstable and same rx (3) Hypertension: Code(s): I10 - Essential (primary) hypertension Qualifiers: Hypertension type: unspecified Qualified Code(s): I10 - Essential (primary) hypertension Plan: stable and same rx Coding Level of Care Code Est Pt Level 4 (12133) Diagnoses Hypothyroidism E03.9 BPH (benign prostatic hyperplasia) N40.0 Hypertension, unspecified type I10 Hypertension type: unspecified Additional Codes NATALI-7 Assessment Billing - NATALI-7 Assessment Tool: NATALI-7 Assessment 23709 ([id number])
== END 2024-02-09 08:54 | disposition home or self-care (01) ==
PROVIDERS: PCP Internal Medicine; Visit Provider Internal Medicine
DX: E03.9 Hypothyroidism, unspecified (principal); N40.0 Benign prostatic hyperplasia without lower urinary tract symptoms; I10 Essential (primary) hypertension
CPT/HCPCS: 99214

== ENCOUNTER 2024-02-09 09:00 | Outpatient (REF) | payer MEDICARE, SELFPAY ==
[2024-02-09 10:19] LABS: Thyroid Stimulating Hormone 1.66 uIU/mL (0.32-4.0)
== END 2024-02-09 09:01 | disposition home or self-care (01) ==
LOC: HO.LAB 09:00
PROVIDERS: PCP Internal Medicine; Visit Provider Internal Medicine
DX: E03.9 Hypothyroidism, unspecified (principal)
CPT/HCPCS: 36415; 84443

== ENCOUNTER 2024-05-04 13:23 | Outpatient (AMB) | payer MEDICARE, SELFPAY ==
[2024-05-04 13:25] VITALS: BP 140/80; PULSE 75; O2SAT 98; BMI 30.7
--- NOTE | 2024-05-04 13:25 | MHC.PC.OV ---
Vital Signs 05/04/24 13:25 Height 5 ft 10 in Weight 214 lb BMI 30.7 BP 140/80 H Blood Pressure Location Lt brachial Position Sitting Pulse 75 Pulse Source Pulse Oximeter Pulse Oximetry (%) 98 Oxygen Delivery Method Room Air Intake Visit Reasons: dementia Form Worker Required: No Beauty Therapist: Not Required per policy Accompanied by: Self / Same As Patient Allergies No Known Allergies [No Known Allergies*] Allergy (Verified 05/04/24 13:25) Medication List - Last Reconciled 05/05/24 by Rj Scales MD bupropion HCl XL 150 mg PO QAM bupropion HCl XL 300 mg PO QAM clotrimazole-betamethasone 1-0.05 % 1 appl topical BID cyclobenzaprine 10 mg PO TID PRN levothyroxine 88 mcg PO DAILY lisinopril 20 mg PO DAILY multivitamin 1 tab PO DAILY omeprazole 20 mg PO DAILY tamsulosin 0.4 mg PO DAILY Tobacco use date assessed: 02/09/24 Fall risk assessment: No Falls in past year Last assessed Fall Risk: 05/04/24 Dental Screening Dental Screen Date: 02/09/24 HPI dementia HPI Details had cognitive testing and diagnosed with mild cognitive impairment; recommened some labs and a sleep syudy [facility] Medical History Obesity Screening for prostate cancer Screening for hyperlipidemia Screening for diabetes mellitus Hypertension Surgical History History of colonoscopy H/O rectal polypectomy History of hemorrhoidectomy Family History Father No problems noted. Mother No problems noted. Brother In good health Sister In good health Son In good health Daughter In good health Social History Housing: House Alcohol intake: never Patient Tobacco Use Status: Never used Tobacco e-Cigarette/Vaping Use: Never Used Second Hand Smoke Exposure: No service: No Current occupational status: retired Cognitive needs: No Hearing needs: No Vision needs: Yes (glasses) Questionnaire Thrive Questionnaire Date Thrive assessed: 02/09/24 NATALI-7 AMB Questionnaire NATALI-7 Date NATALI - 7 assessed: 02/09/24 Source: Developed by Drs. Meliton Choudhary, Merari Cancino, Bob Hurley and colleagues, with an educational ming from [employer]. Review of Systems Const Denies chills, Denies headache(s) and Denies weight loss ENT Denies headache(s) Card Denies chest pain, Denies syncope, Denies irregular heart rhythm and Denies dyspnea Resp Denies chest congestion, Denies cough and Denies dyspnea GI Denies abdominal pain, Denies change in stool character, Denies nausea and Denies vomiting Musc Denies deformity and Denies joint swelling Neuro Denies syncope and Denies headache(s) Physical exam (Primary Care) Vital Signs: Last Vital Signs Pulse 75 05/04/24 13:25 BP 140/80 H 05/04/24 13:25 Pulse Ox 98 05/04/24 13:25 Oxygen Delivery Method Room Air 05/04/24 13:25 BMI result Body Mass Index 30.7 Tobacco/Smoking Status: Tobacco use Status Tobacco use date assessed 02/09/24 05/04/24 13:29 Patient Tobacco Use Status Never used Tobacco 05/04/24 13:29 e-Cigarette/Vaping Use Never Used 05/04/24 13:29 Thrive Assessment: Date of Thrive Assessment Date Thrive assessed 02/09/24 05/04/24 13:29 Const General: cooperative, comfortable, no acute distress and alert Neck Neck: Yes no lymphadenopathy Thyroid: Thyroid normal Resp Effort & Inspection: normal respiratory effort Auscultation: clear to auscultation bilaterally Percussion: percussion normal Cardio Jugular venous distension: no JVD Palpation: normal PMI Rate: regular rate Rhythm: regular rhythm Heart sounds: S1 normal heart sound present and S2 normal heart sound present GI Inspection: Yes normal to inspection Palpation (GI): No hepatosplenomegaly present Skin General skin exam: no rashes or lesions noted Extrem General: Yes no clubbing, cyanosis or edema Assessment and Plan Assessment & Plan (1) Dementia: Code(s): F03.90 - Unspecified dementia, unspecified severity, without behavioral disturbance, psychotic disturbance, mood disturbance, and anxiety Plan: will order tests as requested Orders: Orders Vitamin B12 Today F03.90 - Unspecified dementia, unspecified severity, without behavioral disturbance, psychotic disturbance, mood disturbance, and anxiety Homocysteine Today F03.90 - Unspecified dementia, unspecified severity, without behavioral disturbance, psychotic disturbance, mood disturbance, and anxiety MR head/brain wo con 05/04/24 F03.90 - Unspecified dementia, unspecified severity, without behavioral disturbance, psychotic disturbance, mood disturbance, and anxiety Vitamin B1 Today F0 - Unspecified dementia, unspecified severity, without behavioral disturbance, psychotic disturbance, mood disturbance, and anxiety Methylmalonic Acid Today - Unspecified dementia, unspecified severity, without behavioral disturbance, psychotic disturbance, mood disturbance, and anxiety RT home sleep study 05/04/24 Medications: New bupropion HCl XL 300 mg PO QAM 90 tabs 3RF Coding Level of Care Code Est Pt Level 3 (36826) Diagnoses Dementia F03.90
== END 2024-05-04 13:44 | disposition home or self-care (01) ==
PROVIDERS: PCP Internal Medicine; Visit Provider Internal Medicine
DX: F03.90 Unspecified dementia, unspecified severity, without behavioral disturbance, psychotic disturbance, mood disturbance, and anxiety (principal)
CPT/HCPCS: 99213

== ENCOUNTER 2024-05-05 06:50 | Outpatient (REF) | payer MEDICARE, SELFPAY ==
[2024-05-05 08:01] LABS: Vitamin B12 500 pg/mL (200-900)
[2024-05-09 16:33] LABS: Methylmalonic Acid 108 nmol/L (69-390)
[2024-05-15 13:53] LABS: Vitamin B1 11 nmol/L (8-30)
== END 2024-05-05 06:51 | disposition home or self-care (01) ==
LOC: HO.LAB 06:50
PROVIDERS: PCP Internal Medicine; Visit Provider Internal Medicine
DX: F03.90 Unspecified dementia, unspecified severity, without behavioral disturbance, psychotic disturbance, mood disturbance, and anxiety (principal)
CPT/HCPCS: 36415; 82607; 83090; 83921; 84425

== ENCOUNTER → 2024-07-06 10:44 | Outpatient (REF) | payer MEDICARE, SELFPAY | LOC: HO.SL 10:44 | PROVIDERS: PCP Internal Medicine; Visit Provider Internal Medicine | DX: Z13.89 Encounter for screening for other disorder (principal) ==

== ENCOUNTER 2024-07-26 08:34 | Outpatient (REF) | payer MEDICARE, SELFPAY ==
--- NOTE | ~2024-07-26 | MR_ITS ---
MRI OF THE BRAIN WITHOUT IV CONTRAST INDICATION: Dementia. COMPARISON: Brain MRI April 05, 2017. TECHNIQUE: Multiplanar multisequence MR imaging of the brain was obtained without IV contrast. FINDINGS: There is no hydrocephalus, extra-axial surface collection, or herniation. No parenchymal signal abnormality. The major flow voids at the skull base are preserved. There is no acute infarct on diffusion-weighted imaging. There is no intracranial hemorrhage on the gradient recalled echo acquisition. Similar mineralization throughout the basal ganglia and involving the midbrain bilaterally. The midline structures are normal. The cerebellar tonsils are normally positioned. The cerebellum and brainstem are normal. The craniocervical junction is normal. Osseous marrow signal intensity is homogenous. The visualized soft tissues are unremarkable. There is a small right mastoid effusion. MR/MR head/brain wo con IMPRESSION: Unremarkable noncontrast MRI of the brain. Electronically signed by: Sam Alvarez MD 08/09/2024 11:37 AM EDT
== END 2024-07-26 08:35 | disposition home or self-care (01) ==
LOC: HO.MRI 08:34
PROVIDERS: PCP Internal Medicine; Visit Provider Internal Medicine
DX: F03.90 Unspecified dementia, unspecified severity, without behavioral disturbance, psychotic disturbance, mood disturbance, and anxiety (principal)
CPT/HCPCS: 70551

== ENCOUNTER 2025-01-22 08:30 | Outpatient (AMB) | payer MEDICARE, SELFPAY ==
--- NOTE | 2025-01-22 08:41 | A.OFFPC_ITS ---
Vital Signs 01/22/25 08:43 Height 5 ft 10 in Weight 214 lb 6 oz BMI 30.8 BP 110/64 Blood Pressure Location Lt brachial Position Sitting Pulse 72 Pulse Source Pulse Oximeter Temp 97.7 F Temp Source Temporal Artery Scan Pulse Oximetry (%) 97 Oxygen Delivery Method Room Air Intake Visit Reasons: Blood Pressure and follow up Intake Note: Patient is here to follow up on HTN. Marketing Systems Analyst Required: No Tankage Supervisor: Not Required per policy Accompanied by: Self / Same As Patient Allergies No Known Allergies [No Known Allergies*] Allergy (Verified 01/22/25 08:43) Medication List - Last Reconciled 01/22/25 by Rj Scales MD bupropion HCl XL 300 mg PO QAM clotrimazole-betamethasone 1-0.05 % 1 appl topical BID cyclobenzaprine 10 mg PO TID PRN levothyroxine 88 mcg PO DAILY lisinopril 20 mg PO DAILY multivitamin 1 tab PO DAILY omeprazole 20 mg PO DAILY tamsulosin 0.4 mg PO DAILY Tobacco use date assessed: 01/22/25 Fall risk assessment: No Falls in past year Last assessed Fall Risk: 01/22/25 Dental Screening Dental Screen Date: 01/22/25 Did you have a dental visit in the last 12 months?: Yes Did you have a dental problem in the last 6 months where you did not have access to dental care?: No Was dental information given to patient?: Patient has dentist HPI Blood Pressure and follow up HPI Details HTN and hypothyroidism on rx; doing well; compliant [facility] Medical History Obesity Screening for prostate cancer Screening for hyperlipidemia Screening for diabetes mellitus Hypertension Surgical History History of colonoscopy H/O rectal polypectomy History of hemorrhoidectomy Family History Father No problems noted. Mother No problems noted. Brother In good health Sister In good health Son In good health Daughter In good health Social History Housing: House Alcohol intake: never Patient Tobacco Use Status: Never used Tobacco e-Cigarette/Vaping Use: Never Used Second Hand Smoke Exposure: No service: No Current occupational status: retired Cognitive needs: No Hearing needs: No Vision needs: Yes (glasses) Questionnaire PHQ-9 Over the last 2 weeks, how often have you been bothered by any of the following problems? 1. Little interest or pleasure in doing things: not at all 2. Feeling down, depressed, or hopeless: not at all 3. Trouble falling or staying asleep, or sleeping too much: not at all 4. Feeling tired or having little energy: not at all 5. Poor appetite or overeating: not at all 6. Feeling bad about yourself - or that you are a failure or have let yourself or your family down: not at all 7. Trouble concentrating on things, such as reading the newspaper or watching television: not at all 8. Moving or speaking so slowly that other people could have noticed. Or the opposite - being so fidgety or restless that you have been moving around a lot more than usual: not at all 9. Thoughts that you would be better off or of hurting yourself in some way: not at all Total score: 0 Depression Screening Interpretation: Negative Depression Screening Done: Yes Source: Developed by Drs. Meliton Choudhary, Merari Cancino, Bob Hurley and colleagues, with an educational ming from [employer]. Thrive Questionnaire Date Thrive assessed: 01/22/25 I am a: Patient What is your living situation today?: I have a steady place to live Within the past 12 months, did the food you bought not last and you didn't have the money to get more?: Never true Within the past 12 months, did you worry whether your food would run out before you got money to buy more?: Never true Do you have trouble paying for medicines?: No Do you have trouble getting transportation to medical appointments?: No Do you have trouble paying your heating and electricity bill?: No Do you have trouble taking care of your child, family member or friend?: No Do you have trouble with day-to-day activities such as bathing, preparing meals, shopping, managing finances, etc.?: No Are you currently unemployed and looking for a job?: No Are you interested in more education?: No Please select the resources that you would like help with: None Currently or been in a relationship where the following occur: No concerns reported THRIVE Score: 0 AUDIT C Alcohol Use Questionnaire (AUDIT-C) 1. How often do you have a drink containing alcohol?: Never 3. How often do you have six or more drinks on one occasion?: Never Total Score: 0 NATALI-7 AMB Questionnaire NATALI-7 Date NATALI - 7 assessed: 01/22/25 Feeling nervous, anxious, or on edge: 0 = Not at all Not being able to stop or control worryin = Not at all Worrying too much about different things: 0 = Not at all Trouble relaxin = Not at all Being so restless that it is hard to sit still: 0 = Not at all Becoming easily annoyed or irritable: 0 = Not at all Feeling afraid as if something awful might happen: 0 = Not at all Total NATALI-7 score (0-4 normal; 5-9 mild; 10-14 moderate; 15-21 severe): 0 Source: Developed by Drs. Meliton Choudhary, Merari Cancino, Bob Hurley and colleagues, with an educational ming from [employer]. Review of Systems Const Denies chills, Denies headache(s) and Denies weight loss ENT Denies headache(s) Card Denies chest pain, Denies syncope, Denies irregular heart rhythm and Denies dyspnea Resp Denies chest congestion, Denies cough and Denies dyspnea GI Denies abdominal pain, Denies change in stool character, Denies nausea and Denies vomiting Musc Denies deformity and Denies joint swelling Neuro Denies syncope and Denies headache(s) Physical exam (Primary Care) Vital Signs: Last Vital Signs Temp 97.7 F 01/22/25 08:43 Pulse 72 01/22/25 08:43 BP 110/64 01/22/25 08:43 Pulse Ox 97 01/22/25 08:43 Oxygen Delivery Method Room Air 01/22/25 08:43 BMI result Body Mass Index 30.8 Tobacco/Smoking Status: Tobacco use Status Tobacco use date assessed 01/22/25 01/22/25 08:47 Patient Tobacco Use Status Never used Tobacco 01/22/25 08:47 e-Cigarette/Vaping Use Never Used 01/22/25 08:47 PHQ-9: PHQ-9 Score PHQ-9: Total score 0 01/22/25 08:47 Depression Screening Interpretation: Negative Thrive Assessment: Date of Thrive Assessment Date Thrive assessed 01/22/25 01/22/25 08:47 Currently or been in a relationship where the following occur: No concerns reported Const General: cooperative, comfortable, no acute distress and alert Neck Neck: Yes no lymphadenopathy Thyroid: Thyroid normal Resp Effort & Inspection: normal respiratory effort Auscultation: clear to auscultation bilaterally Percussion: percussion normal Cardio Jugular venous distension: no JVD Palpation: normal PMI Rate: regular rate Rhythm: regular rhythm Heart sounds: S1 normal heart sound present and S2 normal heart sound present GI Inspection: Yes normal to inspection Palpation (GI): No hepatosplenomegaly present Skin General skin exam: no rashes or lesions noted Extrem General: Yes no clubbing, cyanosis or edema Coding Level of Care Code Est Pt Level 3 (24943) Diagnoses Hypertension, unspecified type I10 Hypertension type: unspecified Assessment & Plan Assessment & Plan (1) Hypertension: Code(s): I10 - Essential (primary) hypertension Category: Medical Qualifiers: Hypertension type: unspecified Qualified Code(s): I10 - Essential (prim arpit) hypertension Plan: stable; same rx
[2025-01-22 08:43] VITALS: BP 110/64; PULSE 72; TEMP 36.5; O2SAT 97; BMI 30.8
--- OUTSIDE RECORDS SUMMARY | 2025-01-22 08:43 | XMS_ITS | Patient Health Record ---
Author Organization [facility] Address [address] [place] [address] Care Team Providers Care Loader Magazine Grinder Name Role Phone Rj Scales MD Primary Care Provider UnavailAdeel Lambert Jr Unavailable Reason For Referral No Information Medications Medication SIG (Take, Route, Frequency, Duration) Notes Start Date End Date Status Centrum Silver - as directed Orally Active Tamsulosin HCl 0.4 MG TAKE 1 CAPSULE BY MOUTH EVERY DAY Oral for 90 Active MiraLax (colon prep) 8.3 ounce ((238) grams mixed with Gatorade or Crystal Light orally begin at 5:00 p.m. the day before the procedure for 1 day 02/20/2021 Active buPROPion HCl ER (XL) 150 MG TAKE 1 TABLET BY MOUTH EVERY DAY IN THE MORNING Oral for 90 Active Lisinopril 10 MG TAKE 10 MG BY MOUTH DAILY Oral for 90 Active Omeprazole 20 MG TAKE 1 CAPSULE BY MO UTH EVERY DAY Oral for 90 Active Sildenafil Citrate 100 MG TAKE ONE TABLE T BY MOUTH ONCE A DAY NEEDED Oral for 6 Active Immunizations Vaccine Route Administration Date Status Comme nts Influenza Unknown 07/16/2020 Administered Social History Alcohol Screen Question Answer Notes Did you have a drink containing alcohol in the p ast year? No Points 0 Interpretation Negative Problems Problem Type SNOMED Code ICD Code Onset Dates Problem Status W/U Status Risk Notes Problem [id number] Colon cancer screening (Z12.11) Active confirmed Plan Of Treatment Future Test Test Name Order Date COLONOSCOPY 08/14/2015 COLONOSCOPY 02/20/2021 Insurance Providers Payer Name Payer Address Payer Phone Subscriber Number Group Number Insured Name Patient Relationship to Insured Coverage Start Date Coverage End Date MEDICARE OF [place] [address] [place] [id number] SEGUNDO CADENA Self - patient is the insured [employer] ATT[employer] CLAIMS [address] [place] [phone] [id number] SEGUNDO CADENA Self - patient is the insured Medical (General) History Medical History History ICD Code colonoscopy 03/30, hyperplast ic polyp, prior history of colon polyps, followup due 04/04 gastroesophageal reflux disease anxiety/depression BPH hypertension Surgical History Surgery Date(Month/Year) left knee arthroscopy right knee arthroscopy
--- OUTSIDE RECORDS SUMMARY | 2025-01-22 08:43 | XMS_ITS | Data Portability ---
Author Organization [place] [facility], Allergy Address [address] [address] Care Team Providers Care Sales Engagement Executive Name Role Phone YONI HARRISON Primary Care Provider JOSE LUIS GONZALES Referring Provider [phone] Assessment No assessment recorded. Plan of Treatment Reminders Order Date Submit Date Provider Last Modified By Organization Details Last Modified Time Details Appointments Establish ed 30 2024 08:30A M ADRIANNA Ferrari MD Not available Not available Not available Lab None recorded. Referral None recorded. Procedures None recorded. Surgeries None recorded. Imaging None recorded. Medication Orders ofloxacin 0.3 % ear drops 2024 025 [facility] #[id number], [address] [facility], [place], [address], 12/14/2024 10:12:59 Patient TargetsNo targets recorded. Patient InstructionsNo instructions recorded. Reason for Referral None Reported. Results Created Date Observation Date Name Description Value Unit Range Abnormal Flag Note LastModifiedBy Organization Detail LastModifiedTime 08/11/20 24 audio gram No observ ation record ed. [email or web address] Not Available 2023 16:35:11 Result Notes None recorded. Problems Name Problem SNOMED Code Status Onset Date Resolution Date Notes Provider Name and Address Organization Details Recorded Time Disorder of right Eustachia n tube 39334641033 16094 Active 2023 Other specified disorders of Eustachia n tube, right ear; Note: Date Diagnosed : 02/10/2024 12:49 PM (H69.81) Not Available [facility] 02:58:18 Conductiv e hearing loss of right ear 4425408156 Active 2023 Conductiv e hearing loss, unilatera l, right ear with restricte d hearing on the contralat eral side; Note: Date Diagnosed : 02/10/2024 12:48 PM (H90.A11) Not Available [facility] 4 02:58:19 Chronic serous otitis media of right ear 595016235 Active 2023 Chronic serous otitis media, right ear; Note: Date Diagnosed : 02/10/2024 12:48 PM (H65.21) Not Available [facility] 4 02:58:21 Dysfuncti on of right eustachia n tube 17678566612 54576 Active 2023 ADRIANNA BENITES MD [address] [facility] [address],[place] [address], [facility] [place], [address] , [facility] [place] 4 10:58:37 Impacted cerumen of bilateral ears 54932331682 29665 Active 2023 ADRIANNA BENITES MD [address] [place], [place] [address]on [place] [address], [facility] [place], [address] , [facility] - [facility] [place] 4 11:07:19 Dysfuncti on of eustachia n tube 26435050 Active 2024 ADRIANNA BENITES MD [address] [place], [place] [address]on [place] [address], [facility] [place], [address] , [place] [facility] [place] 5 10:12:22 Problem Notes None recorded. Procedures Surgical History Date Name Laterality Status Provider Name and Address Organization Details Recorded Time 12/14/19 25 Myringotomy w/Placement of Tube right completed ADRIANNA BENITES MD [address] [facility] [address],[place] [address], [place], [address], [facility] - [facility] [place] 12/14/2024 10:12:16 08/10/20 24 Air only Audio (47653) completed JD CALI [address] [facility] [address],[place] [facility], [place], [address], [place] [facility] [place] 08/10/2024 11:14:52 08/10/20 24 Tympanometry (61894) completed JD CALI 100 [facility] [address], [place], [address], [facility] - [facility] 08/10/2024 11:15:00 08/10/20 24 Cerumen removal with microscope bilateral completed ADRIANNA BENITES MD 100 [facility] [address], [place], [address], [facility] - [facility] 08/10/2024 11:07:10 Imaging Results Imaging Date Name Status [facility] Details LastModified Time 08/11/2024 audiogram completed kreiro Information no t available 08/11/2024 16:35:11 Procedure Notes None recorded. Medical Equipment None Reported. Medications Name Sig Start Date Stop Date Status Note LastModified by Organization Details LastModified Time azithromy samuel 250 mg tablet 02/09 completed Medicati on ID: [id number] B rand Name: azithrom ycin Sen d Method: E-Prescr ibed Sub s Allowed: subs OK Medic ationGen ericName : azithrom ycin Not Available Not Available Not Available ofloxacin 0.3 % eye drops 5 drop twice a day 2023 active Medicati on ID: [id number] D uration Value: 5 Brand Name: ofloxaci n Send Method: E-Prescr ibed Sub s Allowed: subs OK Speci al Instruct ion: 5 drops into both ears twice daily for 5 days Med icationG enericNa me: ofloxaci n Not Available Not Available Not Available lisinopri l 20 mg tablet TAKE 1 TABLET BY MOUTH EVERY DAY active Not Available Not Available No t Available prednison e 20 mg tablet 02/09 completed Medicati on ID: [id number] B rand Name: predniso ne Send Method: E-Prescr ibed Sub s Allowed: subs OK Medic ationGen ericName : predniso ne Not Available Not Available Not Available levothyro xine 100 mcg tablet 02/09 completed Medicati on ID: [id number] B rand Name: levothyr oxine Se nd Method: E-Prescr ibed Sub s Allowed: subs OK Medic ationGen ericName : levothyr oxine Not Available Not Available Not Available levothyro xine 88 mcg tablet TAKE 1 TABLET BY MOUTH DAILY active Not Available Not Available No t Available ofloxacin 0.3 % ear drops INSTILL 5 DROPS TWICE A DAY BY OTIC ROUTE FOR 5 DAYS. active Not Available Not Available No t Available tamsulosi n 0.4 mg capsule TAKE 1 CAPSULE BY MOUTH EVERY DAY active Not Available Not Available No t Available clotrimaz ole-betam ethasone 1 %-0.05 % topical cream 02/09 completed Medicati on ID: [id number] B rand Name: clotrima zole-bet amethaso ne Send Method: E-Prescr ibed Sub s Allowed: subs OK Medic ationGen ericName : clotrima zole-bet amethaso ne Not Available Not Available Not Available omeprazol e 20 mg capsule,d elayed release TAKE 1 CAPSULE BY MOUTH EVERY DAY active Not Available Not Available No t Available amoxicill in 250 mg capsule 02/09 completed Medicati on ID: [id number] B rand Name: amoxicil denice Send Method: E-Prescr ibed Sub s Allowed: subs OK Medic ationGen ericName : amoxicil denice Not Available Not Available Not Available methylpre dnisolone 4 mg tablets in a dose pack 02/09 completed Medicati on ID: [id number] B rand Name: methylpr ednisolo ne Send Method: E-Prescr ibed Sub s Allowed: subs OK Medic ationGen ericName : methylpr ednisolo ne Not Available Not Available Not Available albuterol sulfate HFA 90 mcg/actua tion aerosol inhaler 02/09 completed Medicati on ID: [id number] B rand Name: albutero l sulfate Send Method: E-Prescr ibed Sub s Allowed: subs OK Medic ationGen ericName : albutero l sulfate Not Available Not Available Not Available ketoconaz ole 2 % topical cream APPLY TWICE A DAY TO FEET AND BETWEEN TOES UNTIL RASH CLEARS, AND NEEDED FOR RECURREN CE active Not Available Not Available No t Available cefdinir 300 mg capsule 02/09 completed Medicati on ID: [id number] B rand Name: cefdinir Send Method: E-Prescr ibed Sub s Allowed: subs OK Medic ationGen ericName : cefdinir Not Available Not Available Not Available amoxicill in 875 mg-potass ium clavulana te 125 mg tablet 02/09 completed Medicati on ID: [id number] B rand Name: amoxicil denice-pot clavulan ate Send Method: E-Prescr ibed Sub s Allowed: subs OK Medic ationGen ericName : amoxicil denice-pot clavulan ate Not Available Not Available Not Available bupropion HCl XL 300 mg 24 hr tablet, extended release TAKE 1 TABLET BY MOUTH EVERY MORNING active Not Available Not Available No t Available bupropion HCl XL 150 mg 24 hr tablet, extended release 02/09 completed Medicati on ID: [id number] B rand Name: bupropio n HCl Send Method: E-Prescr ibed Sub s Allowed: subs OK Medic ationGen ericName : bupropio n HCl Not Available Not Available Not Available Antifunga l (miconazo le) 2 % topical powder 02/09 completed Medicati on ID: [id number] B rand Name: Antifung al (miconaz ole) Sen d Method: E-Prescr ibed Sub s Allowed: subs OK Speci al Instruct ion: APPLY TO AFFECTED AREA 3 TIMES A DAY Medi cationGe nericNam e: Antifung al (miconaz ole) Not Available Not Available Not Available FarazaxNOW COVID-19 Ag Self Test kit 02/09 completed Medicati on ID: [id number] B rand Name: Miguel Angel COVID-19 Ag Self Test Sen d Method: E-Prescr ibed Sub s Allowed: subs OK Speci al Instruct ion: DIRECTED Medicat ionGener icName: BinaxNOW COVID-19 Ag Self Test Not Available Not Available Not Available Vitals Date Recorded Body height Body mass index (BMI) Body weight Provider Name and Address Organization Details Last Updated DateTime 08/10/2024 177.8 cm 30.4 kg/m2 96573.58 renaldo Garza [place] [facility] 08/10/2024 10:51:58 Date Recorded Body height Body mass index (BMI) Body weight Provider Name and Address Organization Details Last Updated DateTime 12/14/2024 177.8 cm 30.4 kg/m2 56553.58 renaldo Garza [place] [facility] 12/14/2024 09:53:52 Social History None recorded. Functional Status None recorded. Mental Status None recorded. Family History Nothing Reported. Medical History No medical history recorded. Past Encounters Encounter ID Performer Location Encounter Start Date Encounter Closed Date Diagnosis/Indication Diagnosis SNOMED-CT Code Diagnosis ICD10 Code Diagnosis Note [id number] ADRIANNA BENITES MD [facility] [address] [address] 08/10/2024 10:12:26 08/10/2024 11:38:34 Dysfunction of right eustachian tube [id number] 557892 H69.91 No effusion. TIPP. Audio showed resolution of CHL AD. I gave reassuranc e. WE will clean the ears and check the tube again in 4 months. Impacted c erumen of bilateral ears 9880855126 705795 H61.23 Recurrent Cerumen Impactions : Ears were meticulous ly cleaned bilaterall y today with a curette and suction. The patient tolerated this well and will follow up for repeat debridemen t per routine. [id number] JD CALI [facility] [address] [address] 08/10/2024 11:13:05 08/10/2024 14:12:16 Dysfunction of right eustachian tube 0006781187 314695 H69.91 Right Ear:Normal hearing through 2K Hz sloping to a moderate SNHL.Paten t tube. [id number] ADRIANNA BENITES MD [facility] [address] [address] 12/14/2024 09:42:55 12/14/2024 10:06:00 Dysfunction of right eustachian tube 1544423723 030460 H69.91 His tube was extruded today. I replaced it and he noted improved blockage and tinnitus. I suspect his symptoms were due to the extruded tube. He will call if the ear doesn't feel better and we will recheck the tube in 6 months. Impacted c erumen of bilateral ears 0336567492 944263 H61.23 Recurrent Cerumen Impactions : Ears were meticulous ly cleaned bilaterall y today with a curette and suction. The patient tolerated this well and will follow up for repeat debridemen t per routine. Dysfunctio n of eustachian tube 49695207 H69.83 H65.23 H90.0 Health Concerns Section Related Observation LastModified by Organization Detai ls LastModified Time None Recorded Concern Status LastModified by Organization Details LastModified Time None Recorded Advance Directives Directive None Recorded Payers Encounter Date Sequence Insurance Name Policy Number Policy [place] Covered Member ID [place] Member ID Guarantor Name 08/10/2024 2 [place] [id number] Tyler Mensah [id number] Tyler Mensah 08/10/2024 1 [place] Tyler Mensah [id number] Tyler Garciabala 08/10/2024 2 [place] [id number] Tyler Mensah [id number] Tyler Fishmana 08/10/2024 1 [place] Tyler Mensah [id number] 20 Tyler Garciabala 12/14/2024 2 [place] [id number] Tyler Fishmana [id number] Tyler Garciabala 12/14/2024 1 [place] Tyler Mensah [id number] 20 Tyler Mensah Notes Date Note Type Note Provider Name and Address Organization Details Recorded Time 08/10/2024 text/html CSOMIn November h e developed blockage of his right ear. He was diagnosed with an effusion. He was treated by Dr. Castanon. Audio in November and December both showed AD CHL with a flat tymp AD. He was treated with steroids and abx without benefit. We did an AD MxT at the last visit. Had some temporary benefit. The right ear feels blocked again. Nasal endo was negative for eustachian tube pathology. ADRIANNA BENITES MD [address] [place] [address], [place], [address], [place] [facility] [place] [address] 11:43:14 12/14/2024 text/html He has a history of CSOM an MxT AD. He noted benefit but lately the ear has felt blocked and he has started to hear his heartbeat in his right ear. Nasal endo was negative for eustachian tube pathology. ADRIANNA BENITES MD [address] [place] [address], [place], [address], [place] [facility] 12/14/2024 10:13:01
== END 2025-01-22 09:05 | disposition home or self-care (01) ==
PROVIDERS: PCP Internal Medicine; Visit Provider Internal Medicine
DX: I10 Essential (primary) hypertension (principal)

== ENCOUNTER → 2025-01-22 08:30 | Outpatient (BNVA) | payer MEDICARE, SELFPAY | PROVIDERS: PCP Internal Medicine; Visit Provider Internal Medicine | DX: I10 Essential (primary) hypertension (principal) | CPT/HCPCS: 99212 ==

== ENCOUNTER 2025-06-06 08:45 | Outpatient (AMB) | payer MEDICARE, SELFPAY ==
--- NOTE | 2025-06-06 09:00 | AM.OFFVISMDC ---
Intake Vital Signs 06/06/25 09:02 Height 5 ft 10 in Weight 210 lb 4 oz BMI 30.2 BP 120/76 Blood Pressure Location Lt brachial Position Sitting Pulse 73 Pulse Source Pulse Oximeter Temp 97.1 F Temp Source Temporal Artery Scan Pulse Oximetry (%) 97 Oxygen Delivery Method Room Air Intake Visit Reasons: JENNIFER Scales Pt Intake Note: Patient is here for an Annual Wellness Visit. Foreign Student Adviser Required: No Rocket Test Fire Worker: Rocket Test Fire Worker offered & declined Accompanied by: Self / Same As Patient Allergies No Known Allergies (No Known Allergies*) Allergy (Verified 06/06/25 09:11) Medication List - Last Reconciled 06/06/25 by Shon Souza PA-C bupropion HCl XL 300 mg PO QAM clotrimazole-betamethasone 1-0.05 % 1 appl topical BID cyclobenzaprine 10 mg PO TID PRN levothyroxine 88 mcg PO DAILY lisinopril 20 mg PO DAILY multivitamin 1 tab PO DAILY omeprazole 20 mg PO DAILY tamsulosin 0.4 mg PO DAILY HPI JENNIFER Scales Pt HPI Details Patient is a 69-year-old male here today for an annual wellness visit. This is the 1st time I am meeting this 69-year-old male with a past medical history significant for hypertension, BPH, hypothyroidism anxiety and GERD. Today's annual wellness visit thus we reviewed his end of life planning and comprehensive care plan which was scanned into patient's documents. :Vaccines: Up-to-date with COVID vaccine, tetanus vaccine, shingles and RSV vaccines-needs up-to-date pneumonia vaccine Colorectal cancer screening: Colonoscopy done in 2020, normal- repeat 10 years HPI Comments History of Present Illness Details reviewed past medical history- yes reviewed surgical / hospitalization history- yes reviewed current medications- yes reviewed family history- yes home safety throw rugs? grab bars? raised toilet seat? working smoke detectors? activities of daily living difficulty bathing or showering? difficulty dressing? difficulty using the toilet? difficulty getting in and out of bed? difficulty walking? receives help from other person's with any of the above tasks? instrumental activities of daily living uses telephone - gets to place out of walking distance- go shopping for groceries- repairs own meals- does own minor home maintenance- does own laundry- does own housework- manages own money- currently takes medication- end of life planning discussed advanced directives- yes advanced directives on file? discussed wishes expressed in advanced directives. fall risk have you had any falls with injuries in the past year? have you had 2 or more falls in the past year? fall risk assessment: [facility] Medical History Obesity Screening for prostate cancer Screening for hyperlipidemia Screening for diabetes mellitus Hypertension Surgical History History of colonoscopy H/O rectal polypectomy History of hemorrhoidectomy Family History Father No problems noted. Mother No problems noted. Brother In good health Sister In good health Son In good health Daughter In good health Social History Housing: House Alcohol intake: never Patient Tobacco Use Status: Never used Tobacco e-Cigarette/Vaping Use: Never Used Second Hand Smoke Exposure: No service: No Current occupational status: retired Cognitive needs: No Hearing needs: No Vision needs: Yes (glasses) Questionnaire Medicare Wellness Checkup [age] What gender do you identify with?: male During the past 4 weeks, how much have you been bothered by emotional problems such as feeling anxious, depressed, irritable, sad or downhearted, and blue?: slightly During the past 4 weeks, has your physical & emotional health limited your social activities with family, friends, neighbors, or groups?: slightly During the past 4 weeks, how much bodily pain have you generally had?: very mild pain During the past 4 weeks, was someone available to help you if you needed & wanted help?: yes, quite a bit During the past 4 weeks, what was the hardest physical activity you could do for at least 2 minutes?: moderate Can you get to places out of walking distance without help? (For eg., can you travel alone on buses, taxis or drive your car?): Yes Can you go shopping for groceries or clothes without someone's help?: Yes Can you prepare your own meals?: Yes Can you do your housework without help?: Yes Because of any health problems, do you need the help of another person with your personal care needs such as eating, bathing, dressing or getting around the house?: No Can you handle your own money without help?: Yes During the past 4 weeks, how would you rate your health in general?: very good During the past 4 weeks how have things been going for you?: pretty well Are you having difficulties driving your car?: no Do you always fasten your seat belt when you are in a car?: yes, usually During past 4 weeks, have you been bothered by the following: never: Falling or dizzy when standing up, Trouble eating well?, Teeth or denture problems? and Problems using the telephone?, seldom: Sexual problems? and sometimes: Tiredness or fatigue? Have you fallen 2 or more times in the past year?: No Are you afraid of falling?: No Are you a smoker?: no During the past 4 weeks, how many drinks of wine, beer, or other alcoholic beverages did you have?: no alcohol at all Do you exercise for about 20 minutes 3 or more times a week?: no, I usually do not exercise this much Have you been given information to help with the following?: no: Hazards in your house that might hurt you? and no: Keeping track of your medications? How often do you have trouble taking medicines the way you have been told to take them?: I seldom take medications as prescribed How confident are you that you can control & manage most of your health problems?: very confident What is your race?: White Mini Mental State Exam (MMSE) Orientation What is the (year) (season) (date) (day) (month)?: year Where are we (state) (county) (town or city) (hospital) (floor)?: town or city Attention & Calculation (CHOOSE ONE) Ask pt to begin with 100 & count backward by 7. Stop after 5 repeats. If pt cannot ask them to spell the word WORLD backward.: 93 Spell WORLD backwards (DLROW): 5 letters Score Score: 8 Activity of Daily Living Bathing - sponge bath, tub bath or shower: receives no assistance (gets in/out by self, if usual bathing means Dressing - getting clothes from closets & drawers, including inner/outer garments & fasteners.: gets clothes & gets completely dressed without help Toileting - going to the 'toilet room' for urine/bowel elimination & cleaning self/arranging clothes: goes to toilet room, cleans self, arranges clothes without help Transfer: moves in & out of bed and chair without help (may use support object) Continence: controls urination/bowel movements completely by self Feeding: feeds self without help Total Score: 0 Information obtained from: patient Using telephone: independent Traveling: independent Shopping: independent Preparing meals: independent Housework: independent Taking medicine: independent Managing money: independent PHQ-9 Over the last 2 weeks, how often have you been bothered by any of the following problems? 1. Little interest or pleasure in doing things: not at all 2. Feeling down, depressed, or hopeless: not at all 3. Trouble falling or staying asleep, or sleeping too much: not at all 4. Feeling tired or having little energy: several days 5. Poor appetite or overeating: not at all 6. Feeling bad about yourself - or that you are a failure or have let yourself or your family down: not at all 7. Trouble concentrating on things, such as reading the newspaper or watching television: several days 8. Moving or speaking so slowly that other people could have noticed. Or the opposite - being so fidgety or restless that you have been moving around a lot more than usual: not at all 9. Thoughts that you would be better off or of hurting yourself in some way: not at all Total score: 2 Depression Screening Interpretation: Positive Depression Screening Follow-up: Existing condition Depression Screening Done: Yes 65847 - PHQ-9 Billing: Yes Source: Developed by Drs. Meliton Choudhary, Merari Cancino, Bob Hurley and colleagues, with an educational ming from [employer]. Thrive Questionnaire Date Thrive assessed: 01/22/25 NATALI-7 AMB Questionnaire NATALI-7 Date NATALI - 7 assessed: 01/22/25 Source: Developed by Drs. Meliton Choudhary, Merari Cancino, Bob Hurley and colleagues, with an educational ming from [employer]. AUDIT C Alcohol Use Questionnaire (AUDIT-C) 2. How many drinks containing alcohol do you have on a typical day when you are drinking?: 1 or 2 Total Score: 0 Physical Exam Vital Signs: Last Vital Signs Temp 97.1 F 06/06/25 09:02 Pulse 73 06/06/25 09:02 BP 120/76 06/06/25 09:02 Pulse Ox 97 06/06/25 09:02 Oxygen Delivery Method Room Air 06/06/25 09:02 BMI result Body Mass Index 30.2 HEENT Other: hearing screening whisper test- passed Eyes Other: vision screening- 20 20 OS OD OU with corrective lenses Other: urinary incontinence? no Neuro Other: balance Romberg- normal tandem walk test- able walk-in turned test- able rise from sit to stand- within 2 seconds Immunizations pneumoc 20-myla conj-dip cr(PF) 0.5 mL IM syringe Performing Provider: Shon Souza PA-C [place] [facility] Administered by: Mechelle Hutchison CMA on 06/06/25 09:36 Dose Route Admin Location Dispensed Lot Number Expiration Date ND Senior Sourcing Manager 0.5 mL IM Left Tricep 0.5 mL [id number] 05/15/26 [email or web address] Total Dispensed Waste 0.5 mL 0 % VIS Given Date VIS Provided VIS Publication Date 06/06/25 Single Vaccine 25 Eligibility Eligibility Date Funding Source Not [facility] Eligible 06/06/25 Private Assessment & Plan Assessment & Plan (1) Encounter for subsequent annual wellness visit (AWV) in Medicare patient: Code(s): Z00.00 - Encounter for general adult medical examination without abnormal findings Plan: As per [facility] Orders: Orders Prostate Specific Antigen Scr Today Z12.5 - Encounter for screening for malignant neoplasm of prostate TSH reflex Free T4 Today E03.9 - Hypothyroidism, unspecified Comprehensive [place]. Panel Fast Today I10 - Essential (primary) hypertension Microalbumin, Random (w Creat) Today I10 - Essential (primary) hypertension Lipid Panel Today I10 - Essential (primary) hypertension Complete Blood Count no Diff Today K21.9 - Gastro-esophageal reflux disease without esophagitis Pneumococcal 20 Immunization Today Z23 - Encounter for immunization Quality Reporting (2019) Depression/Bipolar (159/160/161/177) PHQ-9: Total score: 2 Coding Level of Care Code Medicare Subsequent (G0439) Diagnoses Encounter for subsequent annual wellness visit (AWV) in Medicare patient Z00.00 CPT Codes Advance Care Planning - Time spent: 1-15 minutes, not on file ([id number]) Additional Codes PHQ-9 - 26161 - PHQ-9 Billing: Yes ([id number]) Advance Care Planning Advance Care Planning discussion: Exists, not on file Date of discussion: 06/06/25 Forms completed: JENNIFER Time spent: 1-15 minutes, not on file Actual minutes spent: 2 Did not discuss due to Cultural/Spiritual beliefs: No
[2025-06-06 09:02] VITALS: BP 120/76; PULSE 73; TEMP 36.2; O2SAT 97; BMI 30.2
--- OUTSIDE RECORDS SUMMARY | 2025-06-06 09:04 | XMS_ITS | Patient Health Record ---
Author Organization [facility] Address [address] [place] [address] Care Team Providers Care Immigration Consultant Name Role Phone Rj Scales MD Primary Care Provider UnavailAdeel Lambert Jr Unavailable [phone] Reason For Referral No Information Medications Medication [...] Problem Status W/U Status Risk Notes Problem [id number] Colon cancer screening (Z12.11) Active confirmed Plan Of Treatment Future Test Test Name Order Date COLONOSCOPY 08/14/2015 COLONOSCOPY 02/20/2021 Insurance Providers Payer Name Payer Address Payer Phone Subscriber Number Group Number Insured Name Patient Relationship to Insured Coverage Start Date Coverage End Date MEDICARE OF [place] [address] [place] [id number] SEGUNDO CADENA Self - patient is the insured MEDEX ATTN CLAIMS [address] [place] [address] [id number] [id number] CADENA Self - patient is the insured Medical (General) History Medical History History ICD Code colonoscopy 03/30, hyperplast ic polyp, prior history of colon polyps, followup due 04/04 gastroesophageal reflux disease anxiety/depression BPH hypertension Surgical History Surgery Date(Month/Year) left knee arthroscopy right knee arthroscopy
--- OUTSIDE RECORDS SUMMARY | 2025-06-06 09:04 | XMS_ITS | Patient Health Record ---
Author Organization [facility] Address [address] [address] Care Team Providers Care Continuous Improvement Specialist Name Role Phone Rj Scales MD Primary Care Provider Unavaila Ming Jacinto Unavailable [phone] Reason For Referral No Information Medications Medication SIG (Take, Route, Frequency, Duration) Notes Start Date End Date Status Ativan 0.5 MG 1 tablet at bedtime as needed Orally Once a day Not-Vince ing Wellbutrin XL 300 MG 1 tablet in the mor talia Orally Once a day; Duration: 30 day(s) Active Social History Tobacco use other than smoking: Question Answer Notes Are you an other tobacco user? No Problems Problem Type SNOMED Code ICD Code Onset Dates Problem Status W/U Status Risk Notes Problem Cellulitis and abscess of toe (053011563) Celluitis - Toes (681.10) Active confirmed Problem Paronychia (18917567) Paronychia (681.11) Active confirmed Problem Foot ulcer (95601231) Ulcer of Other Part of Foot (707.15) Active confirmed Plan Of Treatment Pending Test Test Name Order Date 05699- Debride <25 sq cm 06/05/2013 59019 I&D ABSCESS- SIMPLE,SINGLE 014 85788 I&D ABSCESS- SIMPLE,SINGLE 013 Insurance Providers Payer Name Payer Address Payer Phone Subscriber Number Group Number Insured Name Patient Relationship to Insured Coverage Start Date Coverage End Date [facility] [address] [place] [address] [id number] Tyler Mensah Self - patient is the insured Medical (General) History Medical History History ICD Code anxiety depression measles Colon polyps External hemorrhoids Attention deficit disorder seborrheic keratoses Surgical History Surgery Date(Month/Year) knee surgery, left 2004 knee surgery, right 2007 polypectomy
== END 2025-06-06 09:37 | disposition home or self-care (01) ==
LOC: HO.HMCH 08:46
PROVIDERS: PCP Physician Assistant; Visit Provider Physician Assistant
DX: Z00.00 Encounter for general adult medical examination without abnormal findings (principal); Z23 Encounter for immunization

== ENCOUNTER 2025-06-06 08:45 | Outpatient (REF) | payer MEDICARE, SELFPAY ==
[2025-06-06 11:33] LABS: Hematocrit 41.8 % (42.0-52.0); Hemoglobin 14.2 g/dl (14.0-18.0); Mean Corpuscular HGB Conc 34.0 g/dl (31.0-36.0); Mean Corpuscular Hemoglobin 28.6 pg (27.0-33.0); Mean Corpuscular Volume 84.3 fL (80.0-98.0); NRBC Abs Auto 0.000 X10*3/uL (0.0-0.012); NRBC Pct Auto 0.0 /100WBC (0.0-0.2); Platelet Count 252 X10*3/uL (160-400); Red Blood Count 4.96 X10*6/uL (4.60-5.80); White Blood Count 7.1 X10*3/uL (4.8-10.8)
[2025-06-06 12:11] LABS: Alanine Aminotransferase 23 U/L (0-40); Albumin Level 4.6 g/dL (3.5-5.0); Alkaline Phosphatase 59 U/L (39-117); Anion Gap 10 (12-20); Aspartate Amino Transferase 19 U/L (5-37); Blood Urea Nitrogen 17 mg/dL (9-16); Calcium 9.4 mg/dL (8.4-10.2); Carbon Dioxide 26 mmol/L (22-29); Chloride 108 mmol/L (96-108); Cholesterol 211 mg/dL (<200); Estimated Glomerular Filt Rate > 60; HDL Cholesterol 50 mg/dL (>40); Potassium 4.5 mmol/L (3.3-5.1); Sodium 139 mmol/L (135-145); Total Protein 7.6 g/dL (6.5-8.0); Triglycerides 97 mg/dL (<150)
== END 2025-06-06 08:46 | disposition home or self-care (01) ==
LOC: HO.LAB 08:45
PROVIDERS: PCP Physician Assistant; Visit Provider Physician Assistant
DX: Z00.00 Encounter for general adult medical examination without abnormal findings (principal); Z23 Encounter for immunization; E03.9 Hypothyroidism, unspecified; I10 Essential (primary) hypertension; K21.9 Gastro-esophageal reflux disease without esophagitis; Z12.5 Encounter for screening for malignant neoplasm of prostate
CPT/HCPCS: 36415; 80053; 80061; 82043; 82570; 84153; 84443; 85027; 90471; 90677; 96127